=== PATIENT | female | born 1990 | race Caucasian/White ===

== ENCOUNTER 2024-03-20 21:42 | Emergency (ER) | payer OTHER, SELFPAY ==
[2024-03-20 21:46] VITALS: BP 128/88; BMI 25.7
[2024-03-20] MEDS: DECADRON 10 MG IV (22:01)
[2024-03-20] MEDS: BENADRYL 50 MG IV (22:01)
[2024-03-20] MEDS: NSS 1000 IV (22:02)
[2024-03-20] MEDS: ADRENALIN 0.3 MG IM (22:02)
--- NOTE | 2024-03-20 22:47 | ED.ATTNOTE ---
ED Attending Note
ED Attending Note
Patient seen and examined by attending physician: Yes
I performed the substantive portion of visit, reviewed & personally made and approve the management plan that is documented in note by myself or THADDEUS.: Yes
ED Attending Note:
Patient appears slightly anxious but is fully awake, alert and hemodynamically stable. Patient has a diffuse rash and mild uvular and tongue swelling. Will be given epinephrine, Benadryl, Decadron and will be reassessed.
-
Portions of this chart may have been created with voice recognition software.� Occasional wrong word or��sound alike� substitutions may have occurred due to the inherent limitations of voice recognition software.
--- NOTE | 2024-03-20 23:00 | EDRN ---
Patient is improving, tongue not as swollen, VSS
--- NOTE | 2024-03-21 | ED.GENMED ---
History of Present Illness
General
Chief Complaint: Allergic Reaction
Source: patient
Exam Limitations: none
Time Seen by Provider: 03/20/24 21:54
Nursing documentation reviewed up to this point in time: agreed with
History of Present Illness
History of Present Illness:
Patient to ED wtih compaint of sudden onset of hives, tongue swelling. Symptoms started just [employer]NA[employer]. No prior history of same. Reports having sex prior to symptoms starting. Denies any use of creams/lubricants Brought to ED by boyfriend for eval,
Past History
Past History
ED Past Medical History: None
ED Past Surgical History: None
Social History
Tobacco: Smoker
Alcohol: None
Drug: Cocaine, Narcotics and IVDA
Personal: Single
Living: with family
Review of Systems
Review of Systems
All Other Systems: ROS reviewed and negative except as documented in HPI and ROS
Constitutional: Reports no symptoms
EENT: Reports other (tongue swelling)
Respiratory: Reports no symptoms
Cardiac: Reports no symptoms
ABD/GI: Reports no symptoms
: Reports no symptoms
Musculoskeletal: Reports no symptoms
Skin: Reports itching and rash (genralized hives)
Neurological: Reports no symptoms
Psychiatric: Reports no symptoms
Phy Exam
General Physical Exam
General Presentation: well appearing and no apparent distress
General Skin: warm and dry
General Habitus: normal
General Mental: alert
ENT Exam
ENT Exam: neck supple, swallowing well and other (tongue and uvula swelling)
Cardiovascular Exam
Cardiovascular Exam: regular rate/rhythm and no edema
Pulmonary Exam
Pulmonary Exam: lungs clear and no respiratory distress
Gastrointestinal Exam
Gastrointestinal Exam: non tender and soft
Musculoskeletal Exam
Musculoskeletal Exam: full ROM and neuro vasc intact
Skin Exam
Skin Exam: normal color, warm/dry and other (generalized hives)
Psychiatric Exam
Psychiatric Exam: normal mood/affect
Course
Orders/Labs/Results
Orders:
Orders
03/20/24 21:48
Dexamethasone Sod Phosphate [Decadron] 20 mg .ROUTE .STK-MED ONE
Diphenhydramine [Benadryl] 50 mg .ROUTE .STK-MED ONE
Famotidine [Pepcid] 20 mg .ROUTE .STK-MED ONE
03/20/24 21:59
Dexamethasone Sod Phosphate [Decadron] 10 mg IV NOW STA
Diphenhydramine [Benadryl] 50 mg IV NOW STA
03/20/24 22:01
0.9% Sodium Chloride 1000 ml [Nss] 1,000 ml IV BOLUS
03/20/24 22:02
EPINEPHrine PF [Adrenalin] 0.3 mg IM NOW STA
Vital Signs
Initial and Last Documented VS:
Initial Vital Signs
Temp Pulse Resp BP Pulse Ox
97.1 F 96 17 128/88 98
03/20/24 21:46 03/20/24 21:46 03/20/24 21:46 03/20/24 21:46 03/20/24 21:46
Last Documented Vital Signs
Temp Pulse Resp BP Pulse Ox
97.1 F 86 18 128/88 98
03/20/24 21:46 03/20/24 22:15 03/20/24 22:15 03/20/24 21:46 03/20/24 22:22
*Pulse Oximetry
Patient hypoxic: no
*Critical Care Note
Total Time (30-74mins, 75-104mins- exclusive of procedures): Not Applicable
Update Note
Update Note:
Improved with IV benadryl, decadron, IM epi. Will continue benadryl q4-6h over the next 24 hours. Rx for prednisone taper given. ALso given rx for epi-pen. WIll dischage home. Given instructions on s/s to return to ED andshe is agreeable to
plan.
ED Attending Note
-
Portions of this chart may have been created with voice recognition software.� Occasional wrong word or��sound alike� substitutions may have occurred due to the inherent limitations of voice recognition software.
Discharge Plan
Departure
Patient Disposition: Home (Routine Discharge)
Date of Disposition: 03/20/24
Time of Disposition: 23:42
Patient with high blood pressure during this ER visit?: No
Condition: Good
Covid-19: Not Applicable
Discharge Problem:
Allergic reaction
Instructions: Allergic Reaction ED
Prescriptions:
New
prednisone 10 mg Tablet
See Rx Instructions .ROUTE .COMPLEX Qty: 30 0RF
Rx Instructions:
Take By Mouth:
40 mg daily x3 days, 30 mg daily x3 days,
20 mg daily x3 days, 10 mg daily x3 days.
epinephrine [EpiPen 2-Joshua] 0.3 mg/0.3 mL auto-injector
0.3 mg IM DIRECTED Qty: 2 0RF
Referrals:
NONE,* [Family Provider] -
Cherelle Blanchard DO [[facility]] - Next open appointment (D[employer])
Activity Restrictions/Additional Instructions:
Continue Benadryl 50mg every 4-6 hours for the next 24 hours, and then as needed for hives/itching. Return to the emergency department immediately for any difficulty breathing or swallowing.
Interventions
Interventions:
*Risk Screen - Suicide Last Done: 03/20/24 21:46
*General Assessment Last Done: 03/20/24 21:46
*Neglect/Abuse Screening Last Done: 03/20/24 21:46
ED- Fall Risk Assessment Last Done: 03/20/24 22:22
*ED COVID-19 Vaccine History Last Done: 03/20/24 21:46
ED- Cardiac Assessment Last Done: 03/20/24 22:22
ED- Pulmonary Assessment Last Done: 03/20/24 22:22
ED-Skin Assessment Last Done: 03/20/24 22:22
Discharge Date and Time
Print Language: SRI LANKAN
--- NOTE | 2024-03-21 00:08 | EDRN ---
Patient remains stable and improving, will be discharged home.
== END 2024-03-21 00:13 | disposition home or self-care (01) ==
LOC: EMR 21:42
PROVIDERS: EMERGENCY PHYSICIAN Emergency Medicine
DX: T78.40XA Allergy, unspecified, initial encounter (principal); R22.0 Localized swelling, mass and lump, head; L50.9 Urticaria, unspecified; L29.9 Pruritus, unspecified; F17.200 Nicotine dependence, unspecified, uncomplicated; F19.11 Other psychoactive substance abuse, in remission
CPT/HCPCS: 99284; 96374; 96375; 96361; 96372